=== PATIENT | female | born 1975 | race African-American/Black ===

== ENCOUNTER 2018-03-22 12:01 | Emergency (ER) | payer SELFPAY ==
[~2018-03-22] VITALS: Ht 175.3 cm; Wt 63.6 kg
[2018-03-22 12:25] VITALS: Ht 175.3 cm; Wt 63.6 kg
[2018-03-22] MEDS ORDERED: NEURONTIN 300300 MG PO (14:22)
[2018-03-22] MEDS ORDERED: TORADOL10 MG PO (14:22)
[2018-03-22 15:02] VITALS: BP 126/81
== END 2018-03-22 15:04 | disposition home or self-care (01) ==
LOC: D.ER 12:01
DX: M54.16 Radiculopathy, lumbar region (principal); M25.551 Pain in right hip; F17.200 Nicotine dependence, unspecified, uncomplicated

== ENCOUNTER 2018-03-24 08:42 | Emergency (ER) | payer SELFPAY ==
[~2018-03-24] VITALS: Ht 175.3 cm; Wt 61.4 kg
[~2018-03-24 08:42] MED LIST: NEURONTIN 300300 MG PO; TORADOL10 MG PO
[2018-03-24 09:09] VITALS: Ht 175.3 cm; Wt 61.4 kg
[2018-03-24] MEDS ORDERED: COMPAZINE10 MG PO (10:36)
[2018-03-24] MEDS ORDERED: MAXALT10 MG PO (10:36)
[2018-03-24 12:19] VITALS: BP 127/81
== END 2018-03-24 12:19 | disposition home or self-care (01) ==
LOC: D.ER 08:42
DX: G43.909 Migraine, unspecified, not intractable, without status migrainosus (principal); M25.561 Pain in right knee; G93.5 Compression of brain; F17.200 Nicotine dependence, unspecified, uncomplicated

== ENCOUNTER 2018-04-11 07:04 | Emergency (ER) | payer MEDICAID ==
[~2018-04-11] VITALS: Ht 175.3 cm; Wt 61.4 kg
[~2018-04-11 07:04] MED LIST changes: +COMPAZINE10 MG PO; +MAXALT10 MG PO
[2018-04-11 07:09] VITALS: Ht 175.3 cm; Wt 61.4 kg
[2018-04-11] MEDS ORDERED: ULTRAM50 MG PO (08:28)
[2018-04-11] MEDS ORDERED: CYCLOBENZAPRINE10 MG PO (08:28)
[2018-04-11 08:50] VITALS: BP 118/88
== END 2018-04-11 09:14 | disposition home or self-care (01) ==
LOC: D.ER 07:04
DX: G89.29 Other chronic pain (principal); F17.200 Nicotine dependence, unspecified, uncomplicated